=== PATIENT | female | born 1990 | race African-American/Black ===

== ENCOUNTER 2019-02-12 00:06 | Emergency (ER) | payer BC ==
[~2019-02-12] VITALS: Ht 152.4 cm; Wt 81.6 kg
--- NOTE | 2019-02-12 00:25 | NUR ---
ED Nurse Note: Recieved pt from home, in roomc [facility], pt here with c/o left middle finger smashed accidentially in window, pt has artificial acrylic nails on also, pt entire nail bed is lifted, mild bleeding and swelling noted, pt reports severe 10/10 pain, denies any other injuries or complaints.
[2019-02-12] MEDS ORDERED: HYDROcodone/Acetamin 5/325 tab ORAL ONE (00:45)
[2019-02-12] MEDS ORDERED: NAPROXEN250 MG ORAL (00:56)
--- NOTE | 2019-02-12 00:56 | Emergency Room Report ---
History of Present Illness General Chief Complaint: Pain Source: Patient Present Illness HPI 28-year-old female presents with left middle finger pain, patient reports that the window caught her nail, she endorses a sharp pain worse with movement, relieved with rest, no other complaints, Allergies: Coded Allergies: METOCLOPRAMIDE (Verified Allergy, Unknown, 02/12/19) Patient History Past Medical History: see triage record Reviewed Nursing Documentation: PMH: Agreed; PSxH: Agreed Nursing Documentation-PMH Past Medical History: No Stated History Physical Exam Vital Signs Date Time Temp Pulse Resp B/P (MAP) Pulse Ox O2 Delivery O2 Flow Rate FiO2 02/12/19 00:10 98.1 76 18 130/89 (103) 98 Room Air Sp02 EP Interpretation: reviewed, normal General Appearance: well appearing, no apparent distress, alert Head: normocephalic, atraumatic Eyes: bilateral eye PERRL, bilateral eye EOMI ENT: uvula midline, moist mucus membranes Neck: supple, thyroid normal, supple/symm/no masses Respiratory: lungs clear, no respiratory distress, no retraction, no accessory muscle use Cardiovascular #1: normal peripheral pulses, regular rate, rhythm, no edema, no gallop, no murmur Gastrointestinal: non tender, soft, no guarding, no rebound Musculoskeletal: other - Left middle finger nail, partially avulsed, neurovascular exam unremarkable, tenderness to palpation of the left finger Neurologic: alert, oriented x3 Psychiatric: mood/affect normal Skin: no rash, warm/dry Medical Decision Making Diagnostic Impression: Primary Impression: Contusion of left middle finger with damage to nail, initial encounter ER Course Patient with a partially avulsed left fingernail, decision not to remove the nail, patient states that she would rather follow-up with Ortho hand, patient given pain control, return precautions discussed, follow-up with PCP Last Vital Signs Date Time Temp Pulse Resp B/P (MAP) Pulse Ox O2 Delivery O2 Flow Rate FiO2 02/12/19 00:10 98.1 76 18 130/89 (103) 98 Room Air Disposition: HOME, SELF-CARE Condition: Stable Scripts Naproxen* (NAPROSYN*) 250 Mg Tablet 500 MG ORAL BID PRN for For Pain, #20 TAB 0 Refills Prov: Roger Jackson MD 02/12/19 Referrals[facility] Patient Instructions: Nail Avulsion, Nail Bed Injury, [id number] Additional Instructions: The patient was provided with discharge instructions, notified to follow-up with a primary care doctor and or specialist in the next 24-48 hours, and to return to the ED if they have worsening of their symptoms. Please note that this report is being documented using DRAGON technology. This can lead to erroneous entry secondary to incorrect interpretation by the dictating instrument. Roger Jackson MD Feb 12, 2019 00:56
[2019-02-12] MEDS ORDERED: HYDROcodone/Acetamin 5/325 tab ONE (00:57)
[2019-02-12] MEDS ORDERED: Bacitracin Oint UD TOPIC ONE (01:18)
[2019-02-12 01:30] VITALS: BP 122/87
[2019-02-12 01:40] VITALS: BP 122/87
--- NOTE | 2019-02-12 01:40 | NUR ---
ER DISCHARGE NOTE: Patient is cleared to be discharged per ERMD, pt is aox4, on room air, with stable vital signs. pt was given dc and prescription instructions, pt was able to verbalize understanding, pt id band removed without complications. pt is able to ambulate with steady gait. pt took all belongings.
== END 2019-02-12 01:40 | disposition home or self-care (01) ==
LOC: EMR 00:24
DX: S60.032A Contusion of left middle finger without damage to nail, initial encounter (principal); W23.0XXA Caught, crushed, jammed, or pinched between moving objects, initial encounter; Y92.9 Unspecified place or not applicable
CPT/HCPCS: 99282